=== PATIENT | female | born 1965 | race Caucasian/White ===

== ENCOUNTER 2025-06-10 03:33 | Emergency (ER) | payer MEDICAID, SELFPAY ==
--- NOTE | ~2025-06-10 | CT_ITS ---
CT head without contrast Indication: Status post fall Technique: Serial scans were obtained through the brain without the administration of contrast. Dose reduction technique was used on this scan by utilizing automated exposure control and iterative recon struction technique. The dose-length product (DLP) was 681.00 mGy-cm. Findings: There is no evidence of intracranial hemorrhage, mass lesion, or acute infarct. The ventri cles and subarachnoid spaces are dilated, consistent with mild atrophy. Low attenuation regions are seen within the periventricular white matter bilaterally, likely representing changes from chronic mi crovascular ischemic disease. There is no evidence of edema, mass effect or midline shift. The visu alized paranasal sinuses and mastoid air cells are clear. Impression: No intracranial hemorrhage, mass, or acute infarct. Atrophy and chronic white matter changes, as above. Reviewed, dictated and finalized at location . Impression: No intracranial hemorrhage, mass, or acute infarct. Atrophy and chronic white matter changes, as above.
--- NOTE | ~2025-06-10 | XR_ITS ---
Left ankle Technique: AP, oblique, and lateral views were obtained. Clinical History: Injury Findings: No acute fracture or dislocation is seen. Osseous alignment is anatomic. Ankle mortise and other visualized joint spaces are preserved. Soft tissues are otherwise unremarkable. Impression: Unremarkable left ankle. Reviewed, dictated and finalized at location . Impression: Unremarkable left ankle.
--- NOTE | ~2025-06-10 | XR_ITS ---
2 views of the left calcaneus CLINICAL HISTORY: Status post fall FINDINGS: No acute fracture or dislocation seen joint spaces are intact. Soft tissues are unremarkabl e. IMPRESSION: No significant abnormality. Reviewed, dictated and finalized at location . IMPRESSION: No significant abnormality.
[2025-06-10 03:30] VITALS: BP 164/100; PULSE 104; RESP 17; TEMP 36.6; O2SAT 99
[2025-06-10 03:48] VITALS: BP 184/100; RESP 22; O2SAT 99
--- NOTE | 2025-06-10 03:53 | ED_ITS ---
HPI - Extremity Injury (Lower) General Chief Complaint: Extremity Injury, Lower Stated Complaint: L ankle pain/several falls x 24 hours Time Seen by Provider: 06/10/25 03:45 History of Present Illness HPI Narrative: 59-year-old female with history of alcohol abuse presenting to the emergency department after trip and fall at home. She states that she was walking down her garage and missed a step and rolled her left ankle and landed on the foot. Was able to get up with some assistance but has pain with weight-bearing in left lower extremity especially around the heel. Able to wiggle the toes and move the ankle joint. States that she has also fallen a couple times in the last 24 hours after she was drinking. She does have some abrasion to the anterior portion of her forehead without any active bleeding and appears scabbed over. No dehiscence or bleeding. Patient does not take any chronic medications and does not take any anticoagulation or blood thinners. No reported loss of consciousness, vision changes, headache, neck pain, abdominal pain, chest pain, fever or chills. Related Data Allergies Allergy/AdvReac Type Severity Reaction Status Date / Time codeine Allergy Mild Nausea Unverified 06/10/25 04:26 Review of Systems Review of Systems: As reviewed above in HPI Exam Narrative: GENERAL: Thin and frail appearing but not any acute distress HEAD: Normocephalic, abrasion to the anterior part of the forehead appears old and scabbed over without any bleeding or dehiscence EYES: [PERRLA and EOMI.] ENT: Nares clear, no rhinorrhea or epistaxis. Mucous membranes moist. NECK: Supple. CHEST: [Clear to auscultation. No respiratory distress.] HEART: [Regular rate and rhythm]. No murmur heard. [Normal peripheral pulses.] ABDOMEN: [Soft, nondistended], [nontender], [No rigidity or guarding] EXTREMITIES: Pain with palpation of the left heel and lateral malleolus without any overlying skin changes or obvious deformity. Able to plantar and dorsiflex the ankle bilaterally, able to wiggle the toes. Extensor mechanisms are intact at the knees and hips. No obvious external signs of trauma to the extremities. SKIN: Warm, dry, no rash. NEURO: [No focal deficits]. Alert and oriented [x3.] PSYCH: [Normal mood and affect.] Course Vital Signs Vital signs: Vital Signs Temperature 36.6 C 06/10/25 03:30 Pulse Rate 104 H 06/10/25 03:30 Respiratory Rate 17 06/10/25 03:30 Blood Pressure 164/100 H 06/10/25 03:30 Pulse Oximetry 99 06/10/25 03:30 Oxygen Delivery Room Air 06/10/25 03:30 Temperature 36.7 C 06/10/25 05:36 Pulse Rate 95 06/10/25 05:36 Respiratory Rate 21 H 06/10/25 05:36 Blood Pressure 183/97 H 06/10/25 05:36 Pulse Oximetry 98 06/10/25 05:36 Oxygen Delivery Room Air 06/10/25 03:30 MDM - Extremity Injury (Lower) MDM Narrative Medical decision making narrative: 59-year-old female with history of alcohol abuse presenting to the emergency department after trip and fall at home. She states that she was walking down her garage and missed a step and rolled her left ankle and landed on the foot. Was able to get up with some assistance but has pain with weight-bearing in left lower extremity especially around the heel. Able to wiggle the toes and move the ankle joint. States that she has also fallen a couple times in the last 24 hours after she was drinking. She does have some abrasion to the anterior portion of her forehead without any active bleeding and appears scabbed over. No dehiscence or bleeding. Patient does not take any chronic medications and does not take any anticoagulation or blood thinners. No reported loss of consciousness, vision changes, headache, neck pain, abdominal pain, chest pain, fever or chills. Pain with palpation of the left heel and lateral malleolus without any overlying skin changes or obvious deformity. Able to plantar and dorsiflex the ankle bilaterally, able to wiggle the toes. Extensor mechanisms are intact at the knees and hips. No obvious external signs of trauma to the extremities. Vital signs show some mild hypertension but no significant tachycardia, fever, hypoxia. She is overall well-appearing not any acute distress. Pain is mild and she was given Tylenol and ibuprofen and x-rays of the ankle and heel of the left extremity was ordered as well as a CT of the head given her falls recently but suspicion for intracranial pathology is low. X-rays were independently reviewed and also interpreted by Radiology. No appreciable fractures or dislocations of the ankle or heel. There is a small calcaneal spur. CT of the head also independently reviewed and shows no acute intracranial process. Confirmed by radiology. Patient was provided an Bird wrap for comfort as well as crutches for ambulation assistance and discharged home with anti-inflammatory measures. Medical Records Attestation: I reviewed the patient's medical records. Imaging Data Attestation: I personally reviewed and interpreted this imaging study as follows: My impression: No acute fractures or dislocations, no intracranial pathology. Discharge Plan Discharge Clinical Impression: Ankle sprain and strain, Fall, CHI (closed head injury) Patient Disposition: Home Condition: Stable Instructions: Antibiotic Form Additional Instructions: Your x-rays do not show anything broken or dislocated. You likely have a ankle sprain given the mechanism of injury. We will send you home with anti- inflammatories and recommend Bird wrap for comfort as well as ice up to 20 minutes at a time up to 4 times a day. Use crutches for ambulation assistance but weight bear as tolerated and return to normal activities. Patient Language: Amharic Prescriptions: New ibuprofen 400 mg tablet 400 mg PO TID PRN (Reason: fever or pain) Qty: 20 0RF acetaminophen [Pain Relief (acetaminophen)] 325 mg tablet 650 mg PO ONCE PRN (Reason: fever or pain) Qty: 20 0RF Follow-up/Referrals: UNKNOWN,DOCTOR [Primary Care Provider] - Time of Disposition: 04:53
--- NOTE | 2025-06-10 04:20 | PC.NURSE ---
Pt currently in scan. Unable to give meds at this time. Will administer meds once pt is back in room.
[2025-06-10] MEDS: ACETAMINOPHEN 325 MG TABLET 650 MG PO (04:26)
[2025-06-10] MEDS: IBUPROFEN 400 MG TABLET PO (04:27)
[2025-06-10 05:36] VITALS: BP 183/97; PULSE 95; RESP 21; TEMP 36.7; O2SAT 98
== END 2025-06-10 05:38 | disposition home or self-care (01) ==
PROVIDERS: Emergency Provider Student in an Organized Health Care Education/Training Program
DX: S93.402A Sprain of unspecified ligament of left ankle, initial encounter (principal); S09.90XA Unspecified injury of head, initial encounter; W10.9XXA Fall (on) (from) unspecified stairs and steps, initial encounter
CPT/HCPCS: 70450; 73610; 73650; 99284; A9270